=== PATIENT | female | born 2000 | race Caucasian/White ===

== ENCOUNTER → 2023-12-26 | Outpatient (CLI) | payer OTHER, SELFPAY ==
[2023-12-26 16:15] LABS: Absolute Lymphocyte Count 1.92 X10^3/uL (0.83-4.51); Absolute Neutrophil Count 5.3 X10^3/uL (2.0-7.7); Basophil# 0.06 X10^3/uL; Basophil% 0.7 % (0-1); Eosinophil# 0.17 X10^3/uL; Hematocrit 39.3 % (37-47); Hemoglobin 13.5 g/dL (12.0-15.0); Lymphocyte # 1.92 X10^3/ul (0.83-4.51); Mean Corp Hgb Conc 34.4 g/dL (32-36); Mean Corpuscular Hgb 30.7 pg (27.0-32.0); Mean Corpuscular Volume 89.3 fL (81-99); Mean Platelet Vol. 10.7 fl (6.2-12.0); Monocyte# 0.86 X10^3/uL; Monocyte% 10.3 % (0-10); NRBC Flagged by Analyzer 0 % (0-5); Neutrophil # 5.32 X10^3/uL (2.7-7.7); Neutrophil % 63.6 % (47-70); Platelet Count 268 K/mm3 (150-450); RBC Distribution Width CV 11.5 % (11.6-14.6); RBC Distribution Width SD 37.4 fl (35.1-43.9); White Blood Count 8.4 K/mm3 (4.4-11.0)
[2023-12-26 17:21] LABS: HIV - WCH Non-Reactive (Nonreactive); Hepatitis B Surface Antigen Non-Reactive (Nonreactive); Hepatitis C Antibody Non-Reactive (Nonreactive); Rubella IgG Reactive (Nonreactive); Syphilis Antibodies Non-reactive
[2023-12-29 07:08] LABS: Chlamydia By Nucleic Acid AMP Negative (Negative); Gonococcus By Nucleic Acid AMP Negative (Negative)
[2024-01-01 16:09] LABS: HPV Reflexed? NOT INDICATED
== END | disposition home or self-care (01) ==
PROVIDERS: PCP Pediatrics; Referring Provider Registered Nurse; Visit Provider Registered Nurse
DX: Z34.90 Encounter for supervision of normal pregnancy, unspecified, unspecified trimester (principal)
CPT/HCPCS: 36415; 85025; 86703; 86762; 86780; 86803; 86850; 86900; 86901; 87086; 87340; 87491; 87591; 88175; G0145

== ENCOUNTER 2024-01-22 18:23 | Emergency (ER) | payer OTHER, SELFPAY ==
[2024-01-22 18:24] VITALS: BP 125/94; PULSE 85; RESP 14; TEMP 36.9; O2SAT 96; BMI 21.6
--- NOTE | 2024-01-22 20:15 | US_ITS ---
INDICATION: 1st trimester preg and bleeding, cramping EXAMINATION: US OB Transvaginal TECHNIQUE: Transvaginal (for optimal evaluation of the adnexa) pelvic ultrasound was performed. Grayscale, spectral waveform, and color flow Doppler evaluation of the adnexa. COMPARISON: None. FINDINGS: Uterus measures 6.6 x 4.4 x 5.4 cm. Thickened and heterogeneous endometrial complex measures 16 mm diameter. There is ill-defined hypoechoic fluid and debris within endometrial. No pole or well-defined intrauterine gestational sac detected. Cervix is closed. Trace free pelvic fluid. No adnexal mass identified. Bilateral ovaries with normal color Doppler flow and spectral Doppler waveforms. Ovarian follicles present but no large or complex ovarian cyst. Right ovary measures 3.9 x 2 x 2 cm and left ovary 3.7 x 1.6 x 1.9 cm. US/Transvaginal w/Preg US IMPRESSION: Findings likely representing retained products of conception. Recommend gynecologic consultation with correlation of serial hCG and short-term sonographic follow-up. Electronically Signed: Justin Flaherty MD at 22:18 EDT ,
--- NOTE | 2024-01-22 20:17 | ED.VIS.FEGU ---
HPI HPI - Female History of Present Illness Chief Complaint: Vag Bld, Preg Informant: patient Pain Pain: Positive for Pelvic Pain Onset: Today Timing: Intermittent Quality: Positive for Cramping Current Severity: Mild Maximum Severity: Mild Bleeding Issue: Positive for Vaginal bleeding and Passing clots; Negative for Passing tissue Onset: Today and Yesterday Context: Gradual Onset Timing: Intermittent Current Severity: Similar to period Associated Symptoms Associated Symptoms: Positive for Dysuria Test: Positive Sexually: Positive for Active P: 0 Ab: 0 Narrative Narrative: 23-year-old female currently 1112 weeks . Blood type A-. She is G1, P0 Ab0. Had an ultrasound on the office around 8 weeks that showed a single live IUP. Yesterday started having a small amount of vaginal spotting. Today has had cramping, pelvic pain and passing of quarter size clots. Denies any tissue. She has had some recent dysuria. Otherwise has not been ill. Prior similar symptoms: No Recent Illness/Hospitalization: No PFSH PFSH Medical History no medical history no medical history Home Medications PNV no.151-iron 27 mg-folic 800 mcg-omega3 260 nc-cwn-paz-fish capsule ( Multi-DHA (with vitamin K)) cap PO 12/14/23 [History Last Taken Unknown] Allergy/AdvReac Type Severity Reaction Status Date / Time amoxicillin [From Augmentin] Allergy Other Verified 01/22/24 18:28 clavulanic acid Allergy Other Verified 01/22/24 18:28 [From Augmentin] Social History adopted: No household members: spouse and family current occupational status: employed current occupation: [employer] current occupational exposures/hazards: No pets and animals: Yes pets and animals: dog(s) history of recent travel: No sexually active: Yes Smoking Status: Former smoker Electronic Cigarette Use: with nicotine how long ago did patient quit smoking: stopped with postitive test alcohol intake: never substance use type: does not use well-balanced diet: daily or most days caffeine: Yes Type: coffee eating out: 1-3 times/week during the past year weight has: remained stable what type of physical activity do you participate in: none seatbelt use: always do you feel safe at home: Yes 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 Cramping. Passing clots. Dysuria. Currently 11 to 12 weeks . Review of Systems ROS Unobtainable: Denies due to encephalopathy Constitutional Constitutional ED: Denies chills or fever(s) Eyes Eyes: Denies blurry vision ENT ENT ED: Denies ear pain Cardiovascular Cardiovascular: Denies chest pain Respiratory/Chest Respiratory/Chest: Denies cough or dyspnea Gastrointestinal Gastrointestinal: Denies abdominal pain, constipation, diarrhea, melena, nausea or vomiting Genitourinary Genitourinary ED: Reports dysuria; Denies hematuria Musculoskeletal Musculoskeletal: Denies arthralgias or myalgias Integumentary Denies abscess Neurologic Neurologic: Denies headache(s) Psychiatric Psychiatric: Denies anxiety Endocrine Endocrinology: Denies heat intolerance Hematologic/Lymphatic Hematologic/Lymphatic: Denies lymphadenopathy Allergic/Immunologic Allergic/Immunologic ED: Denies mouth swelling, tongue swelling or urticaria EXAM Physical Exam Narrative Exam Narrative: Well-appearing 23-year-old female. Vital signs stable afebrile. Initial blood pressure 125/94. Heart rate 85. HEENT exam unremarkable. Lungs clear equal symmetrical bilaterally. Heart regular rhythm rate about 80 no murmur. Abdomen soft nondistended normal bowel sounds no peritoneal signs. Moving all 4 extremities. Nontender no edema. Neurologically she is awake and alert with no focal motor deficits. She is in no distress. Family present at bedside. Const Vital Signs: 01/22/24 18:24 01/22/24 20:24 01/22/24 22:00 Temperature 98.5 F Temperature Source Temporal Pulse Rate 85 75 79 Respiratory Rate 14 16 16 Blood Pressure 125/94 H 119/78 105/80 Blood Pressure Mean 104 91 88 Pulse Ox 96 98 97 Oxygen Delivery Method Room Air Room Air Room Air Positive well nourished and well developed; Negative for obese, cachectic, contractures or unkempt General Appearance ED: well developed and NAD; Negative for unkempt, cachectic, contractures or pallor Nutritional Appearance: Negative for cachectic or obese HEENT Reports moist mucous membranes Negative for trauma or tenderness Eyes PERRL and EOMs intact bilaterally General Eye ED: Negative for pale conjunctiva, scleral icterus or other Neck no lymphadenopathy, supple and no JVD General: Negative for other Thyroid: Negative for tender Lymph Lymphatic: Negative for other Chest Wall inspection of chest normal and palpation of chest normal Chest: Negative for other Resp normal respiratory effort and clear to auscultation bilaterally Effort and Inspection: Negative for pain with movement Auscultation: Negative for rales, rhonchi or wheezes Cardio regular rate, regular rhythm, S1 normal heart sound, no murmurs and no JVD Rate: Negative for bradycardia or tachycardic Rhythm: Negative for abnormal rhythm GI normal to inspection, nondistended, normoactive bowel sounds, soft to palpation, non-tender, non-distended and no masses Auscultation: normoactive bowel sounds Palpation: Negative for tender or guarding Back/Spine no CVA tenderness Extremity normal to inspection and full ROM General Extremety ED: Negative for edema or tenderness General Extremity: Negative for edema Neuro oriented x3 and CN's II-XII intact bilaterally Sensorium / Orientation: alert, oriented to person, oriented to place and oriented to time; Negative for confused, lethargic or stuporous Motor Exam: strength 5/5 throughout Psych mental status grossly normal Appearance: Negative for unkempt Attitude: No agitated Speech: No other Mood & Affect: Negative for depressed, anxious or tearful Skin no rashes or lesions noted and no wounds General Skin Exam: Negative for jaundice or pallor Rashes: No rashes noted Trauma: Negative for other MDM MDM MDM Narrative Medical decision making narrative: 23-year-old female G1, P0 currently 1112 weeks and is blood type a negative. Having vaginal bleeding. Started spotting yesterday increased bleeding today with cramping. She will need RhoGAM. Ultrasound. Urinalysis. Repeat exam patient is doing well at 10:50 PM. She is having no pain. Her bleeding is almost resolved. 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 Pelvic exam is pending also. Pelvic exam she is currently no active bleeding. No clots. No significant tenderness. I spoke to Dr. Ava Lemos's midlevel . They will follow patient up in the office tomorrow. History & Record Review Discussion w/independent historian: Patient Additional record(s) reviewed:: Prior inpatient record, Prior outpatient record, Prior ED visit and Prior labs Lab Data Attestation: I reviewed the patient's lab results. Lab results narrative: UA normal. No white or red cells on the micro. No bacteria or nitrates. Blood type A- already known. Quant 766. Ultrasound read by the radiologist likely representing retained products of conception Labs: Laboratory Results - last 24 hr 01/22/24 01/22/24 01/22/24 19:50 19:55 20:35 HCG, Quant 766 H Urine Color Yellow Urine Clarity Clear Urine pH 7.0 Ur Specific [place] 1.010 Urine Protein 15 H Urine Glucose (UA) Normal Urine Ketones Negative Urine Occult Blood 150 H Urine Nitrite Negative Urine Bilirubin Negative Urine Urobilinogen Normal Ur Leukocyte Esterase Negative Urine RBC 0 SEEN Urine WBC 0 SEEN Ur Squamous Epith Cells 0-5 SEEN Urine Bacteria 0 SEEN Urine Mucus 0 SEEN Blood Type A NEGATIVE Radiography Diagnostic Testing: Clinical Impression(s) from Imaging Studies Obstetrics Ultrasound 01/22/24 20:15 IMPRESSION: Findings likely representing retained products of conception. Recommend gynecologic consultation with correlation of serial hCG and short-term sonographic follow-up. Electronically Signed: Justin Flaherty MD at 22:18 EDT , Discharge Plan Triage Chief Complaint: Vag Bld, Preg ED Provider: Parker Garcia Dx/Rx/DC Orders Clinical Impression: Incomplete miscarriage, Rh negative status during Instructions: ED Miscarriage Spontaneous Prescriptions: No Action Multi-DHA(with vit K) 27 mg iron-800 mcg-260 mg capsule PO Primary Care Provider: Care Physician,No Primary Referrals: Eliza Olson MD [Non-Staff] - Ava Lemos MD [Med Staff - Active Staff] - As soon as possible Activity Restrictions/Additional Instructions: Plenty of fluids and rest. Follow-up with Dr. Lemos for repeat evaluation to ensure you are doing well. Call their office tomorrow morning at 8 or 9 AM. It appears you are having a miscarriage. You may have additional cramping and bleeding. If you start having severe pain, heavier bleeding or fever you need to return to be re-evaluated. You are also given RhoGAM tonight due to your blood type being a negative. Disposition Disposition: Home, Self Care
[2024-01-22 20:24] VITALS: BP 119/78; PULSE 75; RESP 16; O2SAT 98
[2024-01-22 20:26] LABS: Bacteria 0 SEEN /hpf (None Seen); Mucous, Urine 0 SEEN /hpf (<or=2+); Red Blood Cells-Urine 0 SEEN /hpf (0-5); White Blood Cells 0 SEEN /hpf (0-5)
[2024-01-22 20:45] LABS: Color, Urine Yellow (Yellow); Glucose, Dipstick Normal (Normal); Ketone-Dipstick Negative (Negative); Leukocyte Esterase-Dipstick Negative /ul (Negative); Nitrite-Dipstick Negative (Negative); Occult Blood-Urine 150 /ul (Negative); Protein-Dipstick 15 mg/dl (Negative); Urine Bilirubin Dipstick Negative (Negative); Urine Clarity Clear (Clear); Urine Urobilinogen Normal (Normal)
[2024-01-22 20:58] LABS: hCG Titer Quant., Serum 766 mIU/mL (1-3)
[2024-01-22 21:01] LABS: Squamous Epithelial Cells - UA 0-5 SEEN /hpf (5-10)
[2024-01-22 22:00] VITALS: BP 105/80; PULSE 79; RESP 16; O2SAT 97
[2024-01-22] MEDS: Rho(D) Immune Globulin 300 MCG (1500 Unit) Syringe IV (22:13)
[2024-01-22 23:20] VITALS: BP 130/92; PULSE 77; RESP 18; TEMP 36.4; O2SAT 95
== END 2024-01-22 23:24 | disposition home or self-care (01) ==
PROVIDERS: Emergency Provider Emergency Medicine; Visit Provider Emergency Medicine
DX: O03.4 Incomplete spontaneous abortion without complication (principal); O26.891 Other specified pregnancy related conditions, first trimester; Z67.11 Type A blood, Rh negative; Z3A.11 11 weeks gestation of pregnancy; Z87.891 Personal history of nicotine dependence
CPT/HCPCS: 76817; 81001; 84702; 86900; 86901; 90384; 99283; A4216; J2790; J2791

== ENCOUNTER → 2024-09-23 | Outpatient (CLI) | payer OTHER, SELFPAY ==
[2024-09-23 11:12] LABS: Absolute Neutrophil Count 2.3 X10^3/uL (2.0-7.7); Basophil# 0.03 X10^3/uL; Basophil% 0.7 % (0-1); Eosinophil# 0.07 X10^3/uL; Eosinophils% 1.6 % (0-5); Hemoglobin 14.1 g/dL (12.0-15.0); Lymphocyte % 35.9 % (19-41); Mean Corp Hgb Conc 34.4 g/dL (32-36); Mean Corpuscular Hgb 29.6 pg (27.0-32.0); Mean Corpuscular Volume 86.1 fL (81-99); Mean Platelet Vol. 10.5 fl (6.2-12.0); Monocyte# 0.44 X10^3/uL; Monocyte% 9.9 % (0-10); NRBC Flagged by Analyzer 0 % (0-5); Neutrophil # 2.31 X10^3/uL (2.7-7.7); Neutrophil % 51.7 % (47-70); Platelet Count 267 K/mm3 (150-450); RBC Distribution Width CV 11.9 % (11.6-14.6); RBC Distribution Width SD 37.5 fl (35.1-43.9); Red Blood Count 4.76 M/mm3 (4.2-5.4); White Blood Count 4.5 K/mm3 (4.4-11.0)
[2024-09-23 11:28] LABS: Estradiol 101.9 pg/mL; Follicle Stimulating Hormone 4.1 mIU/mL; T4 Free Direct 1.16 ng/dL (0.76-1.46); Thyroid Stim Hormone (TSH) 0.874 uIU/mL (0.358-3.740)
[2024-09-29 09:22] LABS: 17-Hydroxyprogesterone 123 ng/dL (.)
== END | disposition home or self-care (01) ==
PROVIDERS: Referring Provider Nurse Practitioner Women's Health; Visit Provider Nurse Practitioner Women's Health
DX: N91.5 Oligomenorrhea, unspecified (principal); Z13.29 Encounter for screening for other suspected endocrine disorder
CPT/HCPCS: 36415; 82670; 83001; 83498; 84439; 84443; 85025

== ENCOUNTER 2024-11-23 13:23 | Emergency (ER) | payer OTHER, SELFPAY ==
[2024-11-23 13:23] VITALS: BP 119/82; PULSE 90; RESP 20; TEMP 36.4; O2SAT 99; BMI 21.7
--- NOTE | 2024-11-23 13:53 | RAD_ITS ---
PROCEDURE: ELBOW MIN 3 VIEWS; FOREARM 2 VIEWS REASON FOR EXAM: Pain TECHNIQUE: 3 views right elbow and two views right forearm COMPARISON: None. FINDINGS: Radial diaphyseal displaced fracture with mild foreshortening. Elbow and wrist joints are grossly intact. RAD/Forearm 2 Views IMPRESSION: As above. [facility]
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
--- NOTE | 2024-11-23 14:05 | RAD_ITS ---
PROCEDURE: ELBOW MIN 3 VIEWS; FOREARM 2 VIEWS REASON FOR EXAM: Pain TECHNIQUE: 3 views right elbow and two views right forearm COMPARISON: None. FINDINGS: Radial diaphyseal displaced fracture with mild foreshortening. Elbow and wrist joints are grossly intact. RAD/Elbow min 3 Views IMPRESSION: As above. Reading [facility]
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
[2024-11-23] MEDS: HYDROcodone Bitartrate/Apap 5/325 Tablet PO (14:39)
[2024-11-23 14:58] VITALS: BP 128/54; PULSE 74; RESP 14; TEMP 36.6; O2SAT 99
== END 2024-11-23 14:59 | disposition home or self-care (01) ==
PROVIDERS: Emergency Provider Emergency Medicine; Visit Provider Emergency Medicine
DX: S52.301A Unspecified fracture of shaft of right radius, initial encounter for closed fracture (principal); V48.1XXA Car passenger injured in noncollision transport accident in nontraffic accident, initial encounter; Y92.488 Other paved roadways as the place of occurrence of the external cause
CPT/HCPCS: 29105; 73080; 73090; 99283

== ENCOUNTER 2024-12-02 06:07 | Day surgery (SDC) | payer OTHER, SELFPAY ==
[2024-12-02] VITALS (11 sets, daily range): BP systolic 101–123; BP diastolic 63–82; PULSE 65–101; RESP 16–18; TEMP 36.1–36.9; O2SAT 93–100; BMI 21.5
[2024-12-02 06:39] LABS: Internal QC Validated? YES +Cl - CLEAR BKGD; Pregnancy, Urine Negative Negative
[2024-12-02] MEDS: 0.9% Normal Saline (1000mL) 1,000 ML 15 ML IV (06:51)
--- NOTE | 2024-12-02 06:54 | PRE.ANES_ITS ---
ASA Classification* ASA Classification ASA Classification: 1 Assessment & Plan Anesthesia* Anesthesia Assessment Anesthesia Assessment: Discussed sedation and/or anesthesia options, risks, benefits, and alternatives with patient/parents/legal guardian/POA. Questions invited. The patient/parents/legal guardian/POA seems to understand and agrees to proceed with anesthesia plan. Reviewed the physical assessment, medical history, allergy history and patient home medications list prior to surgery/procedure/anesthetic and documented any changes. Performed airway and anesthesia risk assessments. Anesthesia Type Anesthesia Type: General and Block (Patient is consented for axillary block.) History Source History Obtained from:: Patient and Chart Anesthesia Focused Assessment* Temperature: 98.4 F Pulse Rate: 65 Blood Pressure: 114/72 Respiratory Rate: 16 Pulse Ox: 100 Oxygen Delivery Method: Room Air Airway Assessment Mouth opens: >3 cm Mallampati Score: II Teeth Condition: Intact Neck Range of motion (ROM): Full ROM Focused Labs Anesthesia Preop lab: CBC WBC 4.5 K/mm3 (4.4-11.0) 09/23/24 09:24 09/23/24 RBC 4.76 M/mm3 (4.2-5.4) 09/23/24 09:24 09/23/24 Hgb 14.1 g/dL (12.0-15.0) 09/23/24 09:24 09/23/24 Hct 41.0 % (37-47) 09/23/24 09:24 09/23/24 Plt Count 267 K/mm3 (150-450) 09/23/24 09:24 09/23/24 CHEMISTRY TSH 0.874 uIU/mL (0.358-3.740) 09/23/24 09:24 09/14 COAG HCG, Quant 766 mIU/mL (1-3) H 01/22/24 19:55 01/22/24 Urine Test Negative Negative 12/02/24 06:20 12/02/24 Tst Clinic Negative 09/23/24 09:12 09/23/24 Pre-Assessment Diagnosis/Proposed Procedure Planned Operative Procedure(s): (R) Right radius open reduction internal fixation Anesthesia History Anesthesia History - ripening room attendant: Anesthesia History - ripening room attendant Hx Hospitalization No 11/27/24 13:17 Any Problems With Anesthesia No 11/27/24 13:17 Cholinesterase deficiency No 11/27/24 13:17 You/Your Family Experience No 11/27/24 13:17 fever (hyperthermia) with Relationship Recent Exposure to Contagious No 12/02/24 06:44 Disease Does patient have nerve No 11/27/24 13:17 stimulator Patient instructed to have device shut off --Does patient have Pacemaker No 12/02/24 06:44 or ICD? When Was Last Pacemaker Check QUESTION #4 FULL TEXT: You/Your Family Experience fever (hyperthermia) with Anesthesia Last Oral Intake Last Oral intake: Last Oral Intake NPO since 23:00 12/02/24 06:44 Meds taken in AM with sips of water? Meds patient instructed to take am of surgery PONV PONV - ripening room attendant: PONV - ripening room attendant Female Yes 11/27/24 13:17 HX of Motion Sickness No 11/27/24 13:17 HX of N/V After Surgery No 11/27/24 13:17 Non-Smoker Yes 11/27/24 13:17 Duration of Surgery greater No 11/27/24 13:17 than 60 minutes Number of Risk Factors 2 11/27/24 13:17 PONV Score Moderate Risk 11/27/24 13:17 Height & Weight Height & Weight: Anesthesia: Height & Weight Height 5 ft 4 in 12/02/24 06:44 Weight: 56.9 kg 12/02/24 06:44 Body Mass Index (BMI) 21.5 12/02/24 06:44 Respiratory Assessment Respiratory Assessment - ripening room attendant: Respiratory Tract Infection Hx - ripening room attendant Hx Respiratory Tract Infection No 11/27/24 13:17 STOP Sleep Apnea STOP Sleep Apnea - ripening room attendant: STOP Sleep Apnea - ripening room attendant Hx Hypertension No 11/27/24 13:17 Hx Sleep Apnea No 11/27/24 13:17 CPAP BIPAP Do you snore loudly (louder No 11/27/24 13:17 than talking or can be heard Do you often feel tired/ No 11/27/24 13:17 fatigued/ sleepy during daytime? Has anyone observed you stop No 11/27/24 13:17 breathing during sleep? STOP Results Negative 11/27/24 13:17 QUESTION #5 FULL TEXT : Do you snore loudly (louder than talking or can be heard through closed doors)? Tobacco Use History Tobacco Use History - ripening room attendant: Tobacco Use History - ripening room attendant Tobacco Use Smoking Status Never smoker 11/27/24 13:17 Hx Tobacco Use No 11/27/24 13:17 Years Smoking Packs Smoked per Day Smoking Cessation Date was within the last 15 years Hx Smoking Cessation Date Hx Smoking Cessation Counseling Hematologic Medial History Hematologic Hx - ripening room attendant: Hematologic Medical Hx - ceramic coater machine Hx of Blood Transfusion No 11/27/24 13:17 Hx of Transfusion in last 3 No 11/27/24 13:17 Months Date of Last Transfusion (if within last 3 months) Ever experience any problems No 11/27/24 13:17 with transfusion(s)? Specify any problems Hx of Preganancy in last 3 N/A 11/27/24 13:17 Months Nurse Filling Out Transfusion NBUCHER 11/27/24 13:17 & Questions: Date: 11/27/24 11/27/24 13:17 Time: 13:18 11/27/24 13:17 Patient unable to answer at this time (ie. confused, unrespo /Reproduction History /Reproductive History - ripening room attendant: /Reproductive Hx- ripening room attendant Hx Now No 11/27/24 13:17 Gestational Age (in weeks): EDC: Hx Hx Para Hx Section SAB No 11/27/24 13:17 Active Medications Active Medications: Current Medications Generic Name Dose Route Start Last Admin Trade Name Freq PRN Reason Stop Dose Admin Sodium Chloride 1,000 mls @ 15 mls/hr 12/02/24 06:20 12/02/24 06:51 IV 12/07/24 19:39 15 mls/hr .Q48H SANTINO Administration Protocol PFSH Medical History Seizures Non-smoker Home Medications ?Medication ?Instructions ?Recorded ?Last Taken ?Type hydrocodone-acetaminophen 5-325mg 1 tab PO Q8H PRN markell n 7 days #21 11/26/24 Unknown Rx 5mg-325mg tabs Allergy/AdvReac Type Severity Reaction Status Date / Time amoxicillin (From Augmentin) Allergy Other Verified 12/02/24 06:42 clavulanic acid (From Allergy Other Verified 12/02/24 06:42 Augmentin) Social History adopted: No household members: spouse and family current occupational status: employed current occupation: [employer] current occupational exposures/hazards: No pets and animals: Yes pets and animals: dog(s) history of recent travel: No sexually active: Yes Smoking Status: Never smoker Electronic Cigarette Use: with nicotine how long ago did patient quit smoking: stopped with postitive test alcohol intake: never substance use type: does not use well-balanced diet: daily or most days caffeine: Yes Type: coffee eating out: 1-3 times/week during the past year weight has: remained stable what type of physical activity do you participate in: none seatbelt use: always do you feel safe at home: Yes 

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
--- NOTE | 2024-12-02 07:40 | RAD_ITS ---
EXAM: INTRAOPERATIVE FLUOROSCOPY CLINICAL HISTORY: ORIF right radius COMPARISON: 11/23/2024 TECHNIQUE: 16 intraoperative images are submitted for review. FINDINGS: The patient is status post ORIF utilizing multi screw sideplate transfixing a comminuted mid radial fracture. RAD/Forearm 2 Views IMPRESSION: As above Reading Location: [facility]
[2024-12-02] MEDS: Clindamycin 900 MG/50 ML BAG 75 MG IV (07:52)
[2024-12-02] MEDS: Bupiv/Epi 0.25% 30 ML Vial (09:23)
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
--- NOTE | 2024-12-02 09:53 | PCM.PN.ORT ---
Subjective Subjective Patient seen in PACU, postop day 0 status post right radius midshaft open ORIF. Volar forearm splint present. Pain well-controlled. Objective Data Objective Data Vital Signs: Vital Signs Temp Pulse Resp BP Pulse Ox O2 Del Method 98.4 F 65 16 114/72 100 Room Air 12/02/24 07:01 12/02/24 07:01 12/02/24 07:01 12/02/24 07:01 12/02/24 07:01 12/02/24 07:01 Oxygen Delivery Method Room Air Weight: 125 lb 7.088 oz Body Mass Index (BMI) 21.5 Intake & Output: Intake and Output for Last 24 Hours 11/30/24 12/01/24 12/02/24 23:59 23:59 23:59 Intake Total 50 / 50 Balance 50 / 50 Lab / Micro Data Labs: Laboratory Results - last 24 hr 12/02/24 06:20: Urine Test Negative Radiography Diagnostic Testing: Radiology Impression Forearm X-Ray 12/02/24 07:40 IMPRESSION: As above Reading Location: [facility] Physical Exam Narrative Dressing or splint well-fitting. Distal neurovascular exam is intact. Patient able to do thumbs up, finger MCP extension, finger abduction, and okay sign. Assessment & Plan Assessment/Plan (1) Fx radius shaft-closed: QUALIFIERS: Encounter type: initial encounter Fracture morphology: transverse Fracture alignment: displaced Laterality: right Qualified Code(s): S52.321A - Displaced transverse fracture of shaft of right radius, initial encounter for closed fracture PLAN: Plan Postop day 0 status post right radius open midshaft ORIF. Limb elevation. Sling immobilization. Oral clindamycin for 3 days. Okay to use NSAIDs?ibuprofen [id number]. Active finger movements. Okay to range range of motion of shoulder, fingers, elbow, forearm as much as tolerated outside of the splint. Follow-up in clinic in 1 week for splint removal.
[2024-12-02] MEDS: HYDROcodone Bitartrate/Apap 5/325 Tablet PO (10:47)
--- NOTE | 2024-12-02 14:16 | PCM.POST.ANE ---
Anesthesia: Postop Eval I Current Vital Signs Temperature: 97 F Pulse Rate: 81 Blood Pressure: 106/69 Respiratory Rate: 18 Pulse Ox: 93 Oxygen Delivery Method: Room Air Assessment Airway patent: Yes Spontaneous unlabored respirations: Yes Mental status: Awake nausea: No Vomiting: No Anesthesia Complication: No Fluid Hydration Crystalloid volume administer (ml): 1,000 Total IV fluid infused: 1,000 Progress Note Anesthesia document: Postop Eval 1 completed: Yes
--- NOTE | 2024-12-02 14:21 | POSTOPAN2_ITS ---
Anesthesia Postop Eval I Sum Postop Eval Completion status Anesthesia document: Postop Eval 1 completed: Yes Anesthesia Postop Eval I Summary Anesthesia Postop Eval I Summary: Anesthesia Postop Eval I: Assessment Summary Airway patent Yes 12/02/24 14:18 ROUNDING MACHINE OPERATOR.ACAR Spontaneous unlabored Yes 12/02/24 14:18 ROUNDING MACHINE OPERATOR.ACAR respirations Mental status Awake 12/02/24 14:18 ROUNDING MACHINE OPERATOR.ACAR nausea No 12/02/24 14:18 ROUNDING MACHINE OPERATOR.ACAR Vomiting No 12/02/24 14:18 ROUNDING MACHINE OPERATOR.ACAR Anesthesia Postop Eval I: Fluid Summary Crystalloid volume administer 1,000 12/02/24 14:18 ROUNDING MACHINE OPERATOR.ACAR (ml) Colloids volume administered ( ml) Blood Product volume administered (ml) Total IV fluid infused 1,000 12/02/24 14:19 ROUNDING MACHINE OPERATOR.ACAR Anesthesia Postop Eval I: Summary Notes Anesthesia Complication No 12/02/24 14:18 ROUNDING MACHINE OPERATOR.ACAR Anesthesia Complication Comment: Post-operative progress note Anesthesia: Postop Eval II Evaluation Mental status: Awake and Calm Pain Level: 1 nausea: No Vomiting: No Complications Anesthesia Complication: No
--- NOTE | 2024-12-02 14:21 | PCM.POSTANE2 ---
Anesthesia Postop Eval I Sum Postop Eval Completion status Anesthesia document: Postop Eval 1 completed: Yes Anesthesia Postop Eval I Summary Anesthesia Postop Eval I Summary: Anesthesia Postop Eval I: Assessment Summary Airway patent Yes 12/02/24 14:18 MANGLE OPERATOR GARMENTS.ACAR Spontaneous unlabored Yes 12/02/24 14:18 MANGLE OPERATOR GARMENTS.ACAR respirations Mental status Awake 12/02/24 14:18 MANGLE OPERATOR GARMENTS.ACAR nausea No 12/02/24 14:18 MANGLE OPERATOR GARMENTS.ACAR Vomiting No 12/02/24 14:18 MANGLE OPERATOR GARMENTS.ACAR Anesthesia Postop Eval I: Fluid Summary Crystalloid volume administer 1,000 12/02/24 14:18 MANGLE OPERATOR GARMENTS.ACAR (ml) Colloids volume administered ( ml) Blood Product volume administered (ml) Total IV fluid infused 1,000 12/02/24 14:19 MANGLE OPERATOR GARMENTS.ACAR Anesthesia Postop Eval I: Summary Notes Anesthesia Complication No 12/02/24 14:18 MANGLE OPERATOR GARMENTS.ACAR Anesthesia Complication Comment: Post-operative progress note Anesthesia: Postop Eval II Evaluation Mental status: Awake and Calm Pain Level: 1 nausea: No Vomiting: No Complications Anesthesia Complication: No
== END 2024-12-02 11:23 | disposition home or self-care (01) ==
LOC: SDC 06:08 → AC 06:10
PROVIDERS: Anesthesiology; Referring Provider Orthopaedic Surgery Orthopaedic Surgery of the Spine; Visit Provider Orthopaedic Surgery Orthopaedic Surgery of the Spine
PROC: (CPT 25515; principal; 2024-12-02 07:10)
DX: S52.321A Displaced transverse fracture of shaft of right radius, initial encounter for closed fracture (principal); V48.6XXA Car passenger injured in noncollision transport accident in traffic accident, initial encounter
CPT/HCPCS: 25515; 01830; 73090; 76000; 81025; C1713; A4216; J2405